=== PATIENT | female | born 1935 | race Caucasian/White ===

== ENCOUNTER 2018-04-23 21:48 | Emergency (ER) | payer MEDICARE, SELFPAY ==
[2018-04-23 22:04] VITALS: BP 162/83; PULSE 95; RESP 15; TEMP 36.4; O2SAT 97; BMI 36.6
--- NOTE | 2018-04-23 22:19 | DI.RAD.S_ITS ---
PROCEDURE: XR CHEST 1V INDICATIONS: chest pain TECHNIQUE: One view of the chest was acquired. COMPARISON: [facility], CT, CT ANGIO CHEST ABDOMEN PELVIS, 04/23/2018, 23:19. [facility], CR, CHEST 1 VIEW, 08/02/2016, 4:40. FINDINGS: Surgical changes and devices: Multiple monitoring leads project of the chest. Lungs and pleura: No pleural effusions or pneumothorax. There are mild bibasilar linear opacities most consistent with atelectasis. Mediastinum: Calcification of the aortic arch noted. Mediastinal contours appear normal. Heart size is normal. Large rounded opacity projecting posterior to the cardiac silhouette and over the medial right lung base consistent with a large hernia. Bones and chest wall: Degenerative changes of the bilateral acromioclavicular joints noted. Multilevel degenerative changes of the spine. IMPRESSION: #1. Mild bibasilar atelectasis. #2. Large hiatal hernia. Dictated by: Cam Hogan M.D. on 04/24/2018 at 8:21 Approved by: Cam Hogan M.D. on 04/24/2018 at 8:26
[2018-04-23 22:25] LABS: Prothrombin Time 10.5 SECONDS (10.1-12.7)
[2018-04-23] MEDS: ONDANSETRON 4 MG/2 ML INJ IV (22:26)
[2018-04-23 22:28] LABS: PTT Partial Thromboplastin Tim 22 SECONDS (26.4-36.2)
[2018-04-23 22:30] LABS: Alanine Aminotransferase 19 IU/L (9-52); Albumin 4.6 g/dL (3.5-5.0); Albumin Globulin Ratio 1.2 (1.0-2.8); Alkaline Phosphatase 86 U/L (38-126); Aspartate Aminotransferase 30 IU/L (14-36); BUN Creatinine Ratio 17.8 (6-22); Bilirubin Total 0.4 mg/dL (0.2-1.3); Blood Urea Nitrogen 16 mg/dL (7-17); Calcium 10.1 mg/dL (8.4-10.2); Carbon Dioxide 32 mmol/L (22-32); Chloride 98 mmol/L (98-107); Creatine Kinase 67 U/L (30-135); Estimated Glomerular Filt Rate 59.8 mL/min (>60); Globulin 3.9 g/dL (1.7-4.1); Glucose 179 mg/dL (80-110); HEMOLYSIS 25 (0-50); Lipase 102 U/L (23-300); Potassium 4.3 mmol/L (3.4-5.1); Sodium 145 mmol/L (137-145); Total Protein 8.5 g/dL (6.3-8.2)
[2018-04-23 22:37] LABS: Add Manual Diff / Slide Review NO; Basophils Percent Auto 0.7 % (0-2); Eosinophils Percent Auto 2.9 % (2-4); Hematocrit 42.4 % (36-46); Hemoglobin 14.4 g/dL (12.0-16.0); Lymphocytes Percent Auto 18.4 % (25-40); Mean Corpuscular HGB Conc 33.9 % (30-36); Mean Corpuscular Hemoglobin 30.9 PG (26-34); Mean Corpuscular Volume 91.2 fL (80-100); Monocytes Percent Auto 7.6 % (3-14); Neutrophils Absolute Auto 7800 /uL (3000-5900); Neutrophils Percent Auto 70.4 % (50-75); Platelet Count 296 X10^3/uL (150-400); Red Blood Cell Count 4.65 X10^6/uL (4.0-5.2); Red Cell Distribution Width 15.4 % (11.6-14.8); White Blood Cell Count 11.1 X10^3/uL (4.5-11.0)
[2018-04-23 22:42] LABS: Troponin I < 0.012 ng/mL (0.01-0.034)
--- NOTE | 2018-04-23 23:12 | DI.CT.S_ITS ---
PROCEDURE: CT ANGIO CHEST ABDOMEN PELVIS INDICATIONS: severe chest/abdomen pain, hypoxic TECHNIQUE: Precontrast 5 mm thick sections acquired from the lung apices to the iliac crests. After the administration of intravenous contrast, 2.5 mm thick sections again acquired from the lung apices to the iliac crests. Maximum intensity projection (MIP) oblique sagittal and coronal reformats were then acquired. For radiation dose reduction, the following was used: automated exposure control. COMPARISON: [facility], CT, CHEST/ABD/PEL WITH CONTRAST, 08/02/2016, 4:46. [facility], CT, ABDOMEN/PELVIS WITH CONTRAST, 03/13/2017, 2:36. FINDINGS: Image quality: Excellent. AORTA: Intramural hematoma: Absent Maximum hematoma thickness: Not applicable.. Focal contrast enhancement: Intramural blood pool (< 2 mm neck or imperceptible communication with aortic lumen): Absent. Ulcer-like projection (broad communication with aortic lumen > 3 mm): Absent. Dissection: Absent [place] classification: Not applicable Maximum aortic diameter: 4.0 cm. [If [place] A dissection, > 5.0 cm has a poorer prognosis. If Sammy B dissection, > 4.0 cm has a poorer prognosis.] Periaortic hematoma: Absent. CHEST: Lungs and pleura: No acute airspace opacities. No pleural effusions or pneumothorax. Central and peripheral airways are patent and normal in caliber. Mediastinum: Heart size is normal.Atherosclerotic calcifications are noted in the aorta, great vessels and the coronary vasculature. No pericardial effusion. No mediastinal or hilar adenopathy by size criteria. Central pulmonary arteries are normal in size. No large central pulmonary emboli. Esophagus is normal in caliber. Large hiatal hernia is noted which contains the majority of the stomach. Bones and chest wall: No axillary adenopathy by size criteria. Thyroid gland is within normal limits. No suspicious bony lesions. No vertebral body compression fractures. ABDOMEN: Vasculature: Celiac trunk and mesenteric arteries are patent. Renal arteries are also patent. Solid organs: Liver is normal in size. There is a 3.7 hypoattenuating lesion in the central liver. Gallbladder is contracted, but within normal limits. Biliary system is non dilated. Pancreas enhances normally. Spleen is normal in size and enhancement. No adrenal nodules. Both kidneys are normal in size and enhancement, without hydronephrosis. Right renal cyst is stable. Peritoneum and bowel: No free fluid or air. Bowel loops are normal in caliber and wall thickness.Scattered colonic diverticuli without evidence of diverticulitis. Nodes and vessels: No retroperitoneal or mesenteric adenopathy by size criteria. Inferior vena cava is normal in morphology. Scattered atherosclerotic calcifications involving the abdominal and pelvic vasculature. Atherosclerotic ossifications cause 50% stenosis of the origin of the superior mesenteric artery and the renal arteries. Miscellaneous: A small right periumbilical ventral hernia which contains unremarkable appearing omental fat. PELVIS: Genitourinary: Bladder wall thickness is normal. Uterus is absent. Miscellaneous: No inguinal hernias or adenopathy. No ventral hernias. Bones: No suspicious bony lesions. No vertebral body compression fractures.Spine degenerative disc disease and facet arthropathy. Fixation hardware noted lower lumbar spine. Status post right arthroplasty. IMPRESSION: 1. No evidence of aortic dissection or aortic aneurysm. 2. Atherosclerosis including the coronary vasculature. Atherosclerotic calcifications. 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 3. 3.7 cm hypoattenuating lesion in the central liver which may represent focal fatty infiltration versus less likely neoplastic process. Recommend abdominal ultrasound in one month. 4. Large hiatal hernia. 5. Colonic diverticulosis without evidence of diverticulitis. 6. Postsurgical changes. 7. Findings and recommendations discussed with Dr. Cortez on 04/24/2018 at 0920 hours. Dictated by: Jessy Ramirez MD, PhD on 04/24/2018 at 8:41 Approved by: Jessy Ramirez MD, PhD on 04/24/2018 at 9:22
[2018-04-24 00:30] VITALS: BP 114/63; PULSE 92; O2SAT 95
--- NOTE | 2018-04-24 03:24 | ED_ITS ---
HPI - Chest Pain General Chief Complaint: Chest Pain Stated Complaint: NEEDS TO VOMIT BUT CAN'T Time Seen by Provider: 04/23/18 22:04 Source: patient Mode of arrival: ambulatory Limitations: no limitations History of Present Illness HPI narrative: 82-year-old female with a history of a large sliding hiatal hernia presents to the emergency department with a chief complaint of severe sudden onset intense upper abdominal pain with radiation into her chest and back and near syncope after eating earlier this evening. She had severe nausea and attempted to vomit was unable and states that she has had a similar scenario in the past at which point she was transferred, wall heavily medicated to [facility] in [place] and is unsure what happened at that point time. She denies any recent travel, history of blood clots or recent surgeries. She states that she thinks [facility] fix the problem but she does not have any surgical scars to suggested. Her symptoms were still present on arrival but rapidly improved MD complaint: chest pain Onset (ago): hour(s) Duration: improved Onset: after eating Pain location: substernal Severity: severe Severity scale (1-10): 5 Quality: tightness and aching Pain radiation: back and abdomen Relieving factors: nothing Exacerbating factors: nothing Associated symptoms: nausea and vomiting Treatments prior to arrival chest pain: none Related Data On Oral Contraceptives: No Home Medications Medication Instructions Recorded Confirmed calcium carbonate 1 tab PO Q DAY #0 03/13/17 vitamin B complex [B 1 tab PO QDAY #0 03/13/17 Complex-Vitamin B12] cholecalciferol (vitamin D3) 1,000 unit PO QDAY #0 03/18/17 [Vitamin D3] magnesium oxide 250 mg PO QDAY #0 03/18/17 Previous Rx's Medication Instructions Recorded Disabled Parking Permit felicia #1 04/15/17 metformin [Glucophage] 750 mg PO QDAY #135 tab 06/05/17 pantoprazole 40 mg PO 0600,2100 #60 tab 06/18/17 sucralfate 1 gm PO QIDACHS #120 tab 06/18/17 simvastatin 40 mg tablet 40 mg PO HS #90 tab 01/23/18 blood sugar diagnostic strips #50 each 02/12/18 paroxetine 30 mg tablet 45 mg PO QDAY #135 tab 02/12/18 Allergies Allergy/AdvReac Type Severity Reaction Status Date / Time codeine [CODEINE] Allergy Unknown Unverified 11/19/17 12:13 shellfish derived Allergy Unknown Unverified 11/19/17 12:13 [SHELLFISH DERIVED] EXHAUST FUMES AdvReac Intermediate EYES SWELL Uncoded 11/19/17 12:13 SHUT, SWELLING, NAUSEA. Review of Systems Review of Systems All systems reviewed & are unremarkable except as noted in HPI and below Constitutional Denies chills, Denies fever(s), Denies lethargy and Denies weakness Eyes Denies change in vision, Denies eye discharge, Denies irritation and Denies loss of vision ENT Ears, Nose, Mouth, and Throat: Denies change in voice, Denies neck pain and Denies sore throat Cardiovascular Reports chest pain, Denies irregular heart rhythm, Denies lightheadedness, Denies palpitations, Denies dyspnea, Denies dyspnea on exertion and Denies orthopnea Respiratory Denies cough, Denies dyspnea, Denies dyspnea on exertion and Denies wheezing Gastrointestinal Gastrointestinal: Reports abdominal pain, Denies change in bowel habits, Denies diarrhea, Denies nausea and Denies vomiting Genitourinary Denies hematuria, Denies flank pain, Denies urinary incontinence and Denies urinary urgency Musculoskeletal Reports back pain and Denies neck pain Integumentary/Breasts Denies pruritus, Denies erythema, Denies rash and Denies wounds Neurologic Denies confusion, Denies loss of vision and Denies weakness Psychiatric Denies anxiety, Denies confusion, Denies depression, Denies homicidal ideation and Denies suicidal ideation Endocrine Denies palpitations Hematologic/Lymphatic Denies easy bruising Allergic/Immunologic Denies wheezing Exam Initial Vital Signs Initial Vital Signs: Vital Signs Temperature 97.6 F 04/23/18 22:04 Pulse Rate 95 H 04/23/18 22:04 Respiratory Rate 15 04/23/18 22:04 Blood Pressure 162/83 H 04/23/18 22:04 Pulse Oximetry 97 04/23/18 22:04 Const General: cooperative and well developed Nutritional Appearance: well nourished Orientation: alert, awake, oriented x3 and not confused [facility] Head: normocephalic and atraumatic Ears: external ears normal and TM's normal bilaterally Nose: external nose normal and No nasal discharge Face and sinus: sinuses nontender, face symmetric, no sinus tenderness and No dry mucous membranes Mouth: oral mucosae normal and moist mucous membranes Teeth and gingiva: dentition normal Throat: tonsils normal and uvula midline Eyes General: appearance normal, both eyes and all related structures Eyelids: eyelids normal Conjunctivae: conjunctivae normal Sclera: sclerae normal Pupils: PERRL EOM: EOM intact bilaterally Neck Neck: normal visual inspection, trachea midline, No lymphadenopathy, No midline deformity and No JVD Lymphatic: No lymphedema Chest Chest: normal inspection of the chest Resp Effort & Inspection: normal respiratory effort, able to speak in complete sentences, no respiratory distress and no use of accessory muscles Auscultation: clear to auscultation bilaterally, no rales, no rhonchi and no wheezes Cardio Rate: regular rate Rhythm: regular rhythm Heart Sounds: no click, no gallops, no murmurs and no rubs Pulses: normal peripheral pulses GI Inspection: non-distended Palpation: soft, no hepatosplenomegaly, No guarding, No pulsatile mass and No tender Auscultation: normal bowel sounds Back/Spine/Pelvis Back: No CVA tenderness Cervical Spine: cervical ROM normal and No pain with cervical ROM Thoracic/Lumbar Spine: thoracic and lumbar spine normal to inspection Skin General: no rashes or lesions noted, No jaundice and No petechiae Neuro General: alert, oriented x3, gait normal and no focal motor deficits Speech: speech normal Extrem General: full ROM, no clubbing, cyanosis or edema, no pedal edema and no calf tenderness Psych Appearance: well kempt Mental Status: mental status grossly normal Attitude: cooperative Thought Content: normal and suicidality Judgment: judgment good Course Orders Ordered: ED Orders 04/23/18 22:05 Complete Blood Count AUTO DIFF Stat Comprehensive Metabolic Panel Stat Lipase Stat Partial Thromboplastin Time Stat Prothrombin Time INR Stat Troponin & CK Cardiac Panel Stat 04/23/18 22:19 XR chest 1V Stat EKG-12 Lead Stat 04/23/18 23:12 CT angio chest abdomen pelvis Stat Discontinued Medications Ondansetron HCl (Zofran) 4 mg IV NOW ONE Stop: 04/23/18 22:20 Last Admin: 04/23/18 22:26 Dose: 4 mg Reevaluation(s) Reevaluation #1: now asymptomatic, feels much much better and is requesting DC, but happy to allow us to make some calls to [facility] Consultations Consultation #1: Dr. Sim (thoracic) has reviewed case and images as well as visit notes from 08/02/16 and suggests that her symptoms are likely unrelated to hernia findings Vital Signs - 8 hr 04/23/18 22:04 04/24/18 00:30 Temperature 97.6 F Pulse Rate 95 H 92 H Respiratory Rate 15 Blood Pressure 162/83 H Blood Pressure [Left Arm] 114/63 Pulse Oximetry 97 95 MDM - Chest Pain Differential Diagnosis Likely stable angina, unstable angina pectoris, atypical chest pain, st elevation myocardial infarction, costochondritis, chest pain and biliary colic Medical Records Data Attestation: I reviewed the patient's medical records. Lab Data Attestation: I reviewed the patient's lab results. Result diagrams: 04/23/18 22:05 04/23/18 22:05 Lab Results 04/23/18 04/23/18 04/23/18 Range/Units 22:05 22:05 22:05 WBC 11.1 H (4.5-11.0) X10^3/uL RBC 4.65 (4.0-5.2) X10^6/uL Hgb 14.4 (12.0-16.0) g/dL Hct 42.4 (36-46) % MCV 91.2 (80-100) fL MCH 30.9 (26-34) PG MCHC 33.9 (30-36) % RDW 15.4 H (11.6-14.8) % Plt Count 296 (150-400) X10^3/uL Neut % (Auto) 70.4 (50-75) % Lymph % (Auto) 18.4 L (25-40) % [place] % (Auto) 7.6 (3-14) % Eos % (Auto) 2.9 (2-4) % Baso % (Auto) 0.7 (0-2) % Neut # (Auto) 7800 H (8647-4242) /uL PT 10.5 (10.1-12.7) SECONDS INR 1.0 (0.9-1.3) APTT 22 L (26.4-36.2) SECONDS Sodium 145 (137-145) mmol/L Potassium 4.3 (3.4-5.1) mmol/L Chloride 98 (98-107) mmol/L Carbon Dioxide 32 (22-32) mmol/L BUN 16 (7-17) mg/dL Creatinine 0.90 (0.52-1.04) mg/dL Estimated GFR 59.8 L (>60) mL/min BUN/Creatinine Ratio 17.8 (6-22) Glucose 179 H (80-110) mg/dL Calcium 10.1 (8.4-10.2) mg/dL Total Bilirubin 0.4 (0.2-1.3) mg/dL AST 30 (14-36) IU/L ALT 19 (9-52) IU/L Alkaline Phosphatase 86 (38-126) U/L Total Creatine Kinase 67 (30-135) U/L Troponin I < 0.012 (0.01-0.034) ng/mL Total Protein 8.5 H (6.3-8.2) g/dL Albumin 4.6 (3.5-5.0) g/dL Globulin 3.9 (1.7-4.1) g/dL Albumin/Globulin Ratio 1.2 (1.0-2.8) Lipase 102 (23-300) U/L ABG Data Attestation: I personally reviewed and interpreted this ABG as follows: Imaging Data CT scan - chest: Radiologist's impression: No abdominal aortic aneurysm or dissection. Calcification causing approximately 50% narrowing origin of all mesenteric arteries which are otherwise unremarkable. 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 Stable large hiatal hernia majority of stomach and chest Discharge Plan Departure Patient Disposition: Home Clinical Impression: Hiatal hernia Instructions: DI for Hiatal Hernia Activity Restrictions/Additional Instructions: *You have been diagnosed with [ chronic sliding hiatal hernia ] *What to do: * continue to take medications as directed *Follow up with your primary care provider in 2-3 days, call for an appointment. Let them know you were seen in the Emergency Department and that we ask that you be seen in follow up Dr. Grady ([facility]) [phone] would be happy to see you as an outpatient for evaluation of your hernia. You have some narrowing of the arteries in your abdomen that likely did not contribute to today's symptoms but is certainly worthy of further evaluation. Please contact the [facility] at [phone] *Return to ER if you should have any new, worsening or concerning symptoms , such as [ ] Prescriptions: No Action calcium carbonate 200 MG tablet,chewable 1 tab PO Q DAY Qty: 0 RF: 0 vitamin B complex [B Complex-Vitamin B12] 1 EACH tablet 1 tab PO QDAY Qty: 0 RF: 0 magnesium oxide 250 MG tablet 250 mg PO QDAY Qty: 0 RF: 0 cholecalciferol (vitamin D3) [Vitamin D3] 1,000 UNIT tablet 1,000 unit PO QDAY Qty: 0 RF: 0 Disabled Parking Permit Qty: 1 RF: 0 metformin [Glucophage] 500 MG tablet 750 mg PO QDAY Qty: 135 RF: 1 sucralfate 1 GM tablet 1 gm PO QIDACHS Qty: 120 RF: 2 pantoprazole 40 MG tablet,delayed release (DR/EC) 40 mg PO 0600,2100 Qty: 60 RF: 2 simvastatin 40 mg tablet 40 mg PO HS Qty: 90 RF: 1 paroxetine HCl 30 mg tablet 45 mg PO QDAY Qty: 135 RF: 1 blood sugar diagnostic [Blood Glucose Test] strip .ROUTE .MEDSUPPLY Qty: 50 RF: 12 Referrals: Alka Greenfield MD [Primary Care Provider] -
[2018-04-24 03:30] VITALS: BP 128/59; PULSE 79; RESP 22
== END 2018-04-24 04:26 | disposition home or self-care (01) ==
PROVIDERS: Emergency Provider Emergency Medicine; Family Provider Family Medicine; PCP Family Medicine
DX: K44.9 Diaphragmatic hernia without obstruction or gangrene (principal)
CPT/HCPCS: 36591; 71045; 71275; 74174; 80053; 82550; 82553; 83690; 84484; 85025; 85610; 85730; 93005; 96374; 99283; 99285; J2405; Q9967

== ENCOUNTER → 2018-04-28 16:29 | Outpatient (CLI) | payer MEDICARE, SELFPAY ==
[2018-04-28 18:13] LABS: BUN Creatinine Ratio 17.8 (6-22); Blood Urea Nitrogen 16 mg/dL (7-17); Calcium 9.9 mg/dL (8.4-10.2); Carbon Dioxide 32 mmol/L (22-32); Chloride 98 mmol/L (98-107); Cholesterol 192 mg/dL (140-199); Estimated Glomerular Filt Rate 59.8 mL/min (>60); Glucose 125 mg/dL (80-110); HDL Cholesterol 68 mg/dL (40-60); HEMOLYSIS < 15 (0-50); LDL Cholesterol Calculated 97 mg/dL (<100); Sodium 142 mmol/L (137-145); Triglycerides 133 mg/dL (35-150)
[2018-04-28 18:14] LABS: Potassium 5.4 mmol/L (3.4-5.1)
[2018-04-28 18:38] LABS: Creatinine Urine Random 99.2 mg/dL
[2018-04-28 18:41] LABS: TSH w/ Reflex to FT4 4.25 uIU/mL (0.47-4.68)
[2018-04-28 18:42] LABS: Microalbumi Creatinin Ratio Ur 25.2 ug/mg CR (<30); Microalbumin Urine Random 2.5 mg/dL (0-1.6)
== END ==
PROVIDERS: Family Provider Family Medicine; PCP Family Medicine; Visit Provider Family Medicine
DX: D50.0 Iron deficiency anemia secondary to blood loss (chronic) (principal); E11.9 Type 2 diabetes mellitus without complications
CPT/HCPCS: 36415; 80048; 80061; 82043; 82570; 83036; 84443

== ENCOUNTER 2019-04-03 03:58 | Emergency (ER) | payer MEDICARE, SELFPAY ==
[2019-04-03] VITALS (8 sets, daily range): BP systolic 98–151; BP diastolic 59–102; PULSE 64–77; RESP 11–20; TEMP 37.2; O2SAT 91–96; BMI 36.6
--- NOTE | 2019-04-03 03:59 | DI.RAD.S_ITS ---
PROCEDURE: XR CHEST 1V INDICATIONS: Chest pain TECHNIQUE: One view of the chest was acquired. COMPARISON: None. FINDINGS: Surgical changes and devices: None. Lungs and pleura: Aeration of the lungs is similar to the prior study with mild eventration of the right diaphragm. There is slight increased attenuation at the left lung base that partially obscures the left diaphragm. The pulmonary vascular markings are within normal limits. There may be calcified granulomas within the right lung. No pneumothorax or large effusion is appreciated. Mediastinum: Mediastinal contours appear normal. Heart size is enlarged. Bones and chest wall: No suspicious bony lesions. Overlying soft tissues appear unremarkable. IMPRESSION: 1. Cardiomegaly. 2. Probable scarring versus atelectasis at the left lung base. Note: The preliminary ED findings and the final radiology report are concordant. Dictated by: Bigg Jackson M.D. on 04/03/2019 at 6:43 Approved by: Bigg Jackson M.D. on 04/03/2019 at 6:44
--- NOTE | 2019-04-03 04:00 | ED.CHESTPAIN ---
HPI - Chest Pain General Chief Complaint: Chest Pain Stated Complaint: thinks she is having a heart attack Time Seen by Provider: 04/03/19 03:58 Source: patient Mode of arrival: ambulatory Limitations: no limitations History of Present Illness HPI narrative: 83-year-old female who was a DNR/DNI here for evaluation of left-sided chest discomfort. She states that approximately 1-2 hours prior to arrival in the emergency department she woke up. She then noticed that she was having a sharp pain under her left breast. Did not think it was worse with movement or breathing or palpation. She is not short of breath. She feels that overall she is improving in her symptoms then when the symptoms 1st started. She was concerned that she may be having a heart attack. Related Data Home Medications Medication Instructions Recorded Confirmed calcium carbonate 1 tab PO Q DAY #0 03/13/17 04/28/18 vitamin B complex [B 1 tab PO QDAY #0 03/13/17 04/28/18 Complex-Vitamin B12] cholecalciferol (vitamin D3) 1,000 unit PO QDAY #0 03/18/17 04/28/18 [Vitamin D3] magnesium oxide 250 mg PO QDAY #0 03/18/17 04/28/18 Previous Rx's Medication Instructions Recorded Disabled Parking Permit felicia #1 04/15/17 blood sugar diagnostic strips #50 each 02/12/18 paroxetine 30 mg tablet 45 mg PO QDAY #135 tab 08/28/18 pantoprazole 40 mg tablet,delayed 40 mg PO 0600,2100 #180 tab 11/23/18 release metformin 500 mg tablet 750 mg PO QDAY #135 tab 01/05/19 simvastatin 40 mg tablet 40 mg PO HS #90 tab 02/24/19 Allergies Allergy/AdvReac Type Severity Reaction Status Date / Time codeine [CODEINE] Allergy Unknown Unverified 04/03/19 05:39 shellfish derived Allergy Unknown Unverified 04/03/19 05:39 [SHELLFISH DERIVED] EXHAUST FUMES AdvReac Intermediate EYES SWELL Uncoded 04/03/19 05:39 SHUT, SWELLING, NAUSEA. Review of Systems Constitutional Denies fatigue Cardiovascular Reports chest pain and Denies dyspnea Respiratory Denies dyspnea Gastrointestinal Gastrointestinal: Denies abdominal pain, Denies nausea and Denies vomiting Musculoskeletal Denies myalgias and Denies arthralgias Integumentary/Breasts Denies rash Neurologic Denies behavioral changes Psychiatric Denies behavioral changes Endocrine Denies fatigue Hematologic/Lymphatic Denies easy bleeding and Denies easy bruising [facility] Medical History Liver lesion (Acute) Chronic lower back pain (Acute) Hiatal hernia (Chronic) Blood loss anemia (Resolved) 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, 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) Social History Smoking Status: Former smoker Exam Initial Vital Signs Initial Vital Signs: Vital Signs Temperature 98.9 F 04/03/19 04:05 Pulse Rate 77 04/03/19 04:05 Respiratory Rate 11 L 04/03/19 04:05 Blood Pressure 136/102 H 04/03/19 04:05 Pulse Oximetry 95 04/03/19 04:05 Const General: cooperative, well developed and well groomed Orientation: alert, awake and oriented x3 Resp Effort & Inspection: normal respiratory effort Auscultation: clear to auscultation bilaterally Cardio Rate: regular rate Rhythm: regular rhythm Skin Lesions: no lesions Rashes: no rashes Neuro General: alert and awake Cognition: normal cognition Speech: speech normal Extrem General: normal to inspection and capillary refill normal Psych Appearance: grossly normal and well kempt Course Orders Ordered: ED Orders 04/03/19 03:59 XR chest 1V Stat EKG-12 Lead Stat 04/03/19 04:15 B Type Natriuretic Peptide Stat Complete Blood Count AUTO DIFF Stat Comprehensive Metabolic Panel Stat Lipase Stat Partial Thromboplastin Time Stat Prothrombin Time INR Stat Troponin I Stat 04/03/19 06:17 Troponin I Stat Vital Signs - 8 hr 04/03/19 04:05 04/03/19 04:26 04/03/19 04:34 Temperature 98.9 F Pulse Rate 77 68 69 Respiratory Rate 11 L 18 Blood Pressure 136/102 H Blood Pressure [Right Arm] 134/95 H 108/64 Pulse Oximetry 95 96 96 04/03/19 05:02 04/03/19 05:34 04/03/19 06:00 Temperature Pulse Rate 67 64 66 Respiratory Rate 14 17 Blood Pressure Blood Pressure [Right Arm] 118/59 L 151/65 H 98/80 Pulse Oximetry 96 93 04/03/19 06:30 Temperature Pulse Rate 66 Respiratory Rate 20 Blood Pressure Blood Pressure [Right Arm] Pulse Oximetry 91 MDM - Chest Pain Lab Data Attestation: I reviewed the patient's lab results. Result diagrams: 04/03/19 04:15 04/03/19 04:15 Lab Results 04/03/19 04/03/19 04/03/19 Range/Units 04:15 04:15 04:15 WBC 8.7 (4.5-11.0) X10^3/uL RBC 4.25 (4.0-5.2) X10^6/uL Hgb 13.1 (12.0-16.0) g/dL Hct 39.1 (36-46) % MCV 91.8 (80-100) fL MCH 30.7 (26-34) PG MCHC 33.5 (30-36) % RDW 15.6 H (11.6-14.8) % Plt Count 281 (150-400) X10^3/uL Neut % (Auto) 52.8 (50-75) % Lymph % (Auto) 29.4 (25-40) % [place] % (Auto) 11.8 (3-14) % Eos % (Auto) 4.9 H (2-4) % Baso % (Auto) 1.1 (0-2) % Neut # (Auto) 4600 (0047-9825) /uL Lymph # (Auto) 2600 (1210-7199) /uL [place] # (Auto) 1000 H (0-900) /uL Eos # (Auto) 400 (0-450) /uL Baso # (Auto) 100 (0-100) /uL PT 10.8 (10.1-12.7) SECONDS INR 0.9 (0.9-1.3) APTT 33 D (26.4-36.2) SECONDS Sodium 135 L (137-145) mmol/L Potassium 4.4 (3.4-5.1) mmol/L Chloride 94 L (98-107) mmol/L Carbon Dioxide 31 (22-32) mmol/L BUN 16 (7-17) mg/dL Creatinine 0.90 (0.52-1.04) mg/dL Estimated GFR 59.7 L (>60) mL/min BUN/Creatinine Ratio 17.8 (6-22) Glucose 155 H (80-110) mg/dL Calcium 9.6 (8.4-10.2) mg/dL Total Bilirubin 0.4 (0.2-1.3) mg/dL AST 25 (14-36) IU/L ALT 12 (9-52) IU/L Alkaline Phosphatase 73 (38-126) U/L Troponin I < 0.012 (0.01-0.034) ng/mL B-Natriuretic Peptide 173 H (<100) Total Protein 8.2 (6.3-8.2) g/dL Albumin 4.3 (3.5-5.0) g/dL Globulin 3.9 (1.7-4.1) g/dL Albumin/Globulin Ratio 1.1 (1.0-2.8) Lipase 109 (23-300) U/L // Range/Units 06:17 WBC (4.5-11.0) X10^3/uL RBC (4.0-5.2) X10^6/uL Hgb (12.0-16.0) g/dL Hct (36-46) % MCV (80-100) fL MCH (26-34) PG MCHC (30-36) % RDW (11.6-14.8) % Plt Count (150-400) X10^3/uL Neut % (Auto) (50-75) % Lymph % (Auto) (25-40) % [place] % (Auto) (3-14) % Eos % (Auto) (2-4) % Baso % (Auto) (0-2) % Neut # (Auto) (4696-3457) /uL Lymph # (Auto) (4598-9528) /uL [place] # (Auto) (0-900) /uL Eos # (Auto) (0-450) /uL Baso # (Auto) (0-100) /uL PT (10.1-12.7) SECONDS INR (0.9-1.3) APTT (26.4-36.2) SECONDS Sodium (137-145) mmol/L Potassium (3.4-5.1) mmol/L Chloride (98-107) mmol/L Carbon Dioxide (22-32) mmol/L BUN (7-17) mg/dL Creatinine (0.52-1.04) mg/dL Estimated GFR (>60) mL/min BUN/Creatinine Ratio (6-22) Glucose (80-110) mg/dL Calcium (8.4-10.2) mg/dL Total Bilirubin (0.2-1.3) mg/dL AST (14-36) IU/L ALT (9-52) IU/L Alkaline Phosphatase (38-126) U/L Troponin I < 0.012 (0.01-0.034) ng/mL B-Natriuretic Peptide (<100) Total Protein (6.3-8.2) g/dL Albumin (3.5-5.0) g/dL Globulin (1.7-4.1) g/dL Albumin/Globulin Ratio (1.0-2.8) Lipase (23-300) U/L Imaging Data Chest x-ray: Attestation: I personally reviewed and interpreted this imaging study as follows: My impression: No acute pathology ECG Data Attestation: I personally reviewed and interpreted this ECG as follows: Prior ECG tracings: not available for review Interpretation: Sinus rhythm Ventricular rate is 68 Normal axis Normal QRS Normal QTC No ST T wave changes MDM Narrative Medical decision making narrative: Nontoxic appearing EKG is unremarkable. Chest x-ray shows no acute pathology, troponin negative x2, patient is DNR/DNI. Will hold on further workup for now. Unsure the exact etiology of the patient's symptoms however hold on further workup. Discussed this to the patient. She is going to contact her primary doctor for follow-up. She is given return precautions and follow-up instructions. She expressed understanding and agreement with plan. Discharge Plan Departure Patient Disposition: Home Clinical Impression: Atypical chest pain Instructions: DI for Atypical Chest Pain Activity Restrictions/Additional Instructions: Continue all of your medications as directed. Contact your primary provider for follow-up. Return to the emergency department for any new or worsening symptoms Prescriptions: No Action calcium carbonate 200 MG tablet,chewable 1 tab PO Q DAY Qty: 0 RF: 0 vitamin B complex [B Complex-Vitamin B12] 1 EACH tablet 1 tab PO QDAY Qty: 0 RF: 0 magnesium oxide 250 MG tablet 250 mg PO QDAY Qty: 0 RF: 0 cholecalciferol (vitamin D3) [Vitamin D3] 1,000 UNIT tablet 1,000 unit PO QDAY Qty: 0 RF: 0 Disabled Parking Permit Qty: 1 RF: 0 blood sugar diagnostic [Blood Glucose Test] strip .ROUTE .MEDSUPPLY Qty: 50 RF: 12 paroxetine HCl 30 mg tablet 45 mg PO QDAY Qty: 135 RF: 1 pantoprazole 40 mg tablet,delayed release (DR/EC) 40 mg PO 0600,2100 Qty: 180 RF: 1 metformin [Glucophage] 500 mg tablet 750 mg PO QDAY Qty: 135 RF: 1 simvastatin 40 mg tablet 40 mg PO HS Qty: 90 RF: 1 Referrals: Alka Greenfield MD [Primary Care Provider] -
[2019-04-03 04:23] LABS: Add Manual Diff / Slide Review NO; Basophils Absolute Auto 100 /uL (0-100); Basophils Percent Auto 1.1 % (0-2); Eosinophils Absolute Auto 400 /uL (0-450); Eosinophils Percent Auto 4.9 % (2-4); Hematocrit 39.1 % (36-46); Hemoglobin 13.1 g/dL (12.0-16.0); Lymphocytes Absolute Auto 2600 /uL (1100-4500); Lymphocytes Percent Auto 29.4 % (25-40); Mean Corpuscular HGB Conc 33.5 % (30-36); Mean Corpuscular Hemoglobin 30.7 PG (26-34); Mean Corpuscular Volume 91.8 fL (80-100); Monocytes Absolute Auto 1000 /uL (0-900); Monocytes Percent Auto 11.8 % (3-14); Neutrophils Absolute Auto 4600 /uL (1500-7000); Neutrophils Percent Auto 52.8 % (50-75); Platelet Count 281 X10^3/uL (150-400); Red Blood Cell Count 4.25 X10^6/uL (4.0-5.2); Red Cell Distribution Width 15.6 % (11.6-14.8); White Blood Cell Count 8.7 X10^3/uL (4.5-11.0)
--- NOTE | 2019-04-03 04:28 | PC.NURSE ---
Pt reports a stabbing pain in the left side of her chest that was 8/10 at it's worst. She called out in pain when center of her chest was palpated. She now states her pain in in the same location but 4/10 and it is definitely better than it was. Pt is now resting comfortable on stretcher, given warm blankets, and her daughter is at bedside.
[2019-04-03 04:35] LABS: INR 0.9 (0.9-1.3); Prothrombin Time 10.8 SECONDS (10.1-12.7)
[2019-04-03 04:36] LABS: Alanine Aminotransferase 12 IU/L (9-52); Albumin 4.3 g/dL (3.5-5.0); Albumin Globulin Ratio 1.1 (1.0-2.8); Alkaline Phosphatase 73 U/L (38-126); Aspartate Aminotransferase 25 IU/L (14-36); BUN Creatinine Ratio 17.8 (6-22); Bilirubin Total 0.4 mg/dL (0.2-1.3); Blood Urea Nitrogen 16 mg/dL (7-17); Calcium 9.6 mg/dL (8.4-10.2); Carbon Dioxide 31 mmol/L (22-32); Chloride 94 mmol/L (98-107); Estimated Glomerular Filt Rate 59.7 mL/min (>60); Globulin 3.9 g/dL (1.7-4.1); Glucose 155 mg/dL (80-110); HEMOLYSIS < 15 (0-50); Lipase 109 U/L (23-300); Potassium 4.4 mmol/L (3.4-5.1); Sodium 135 mmol/L (137-145); Total Protein 8.2 g/dL (6.3-8.2)
[2019-04-03 04:37] LABS: PTT Partial Thromboplastin Tim 33 SECONDS (26.4-36.2)
[2019-04-03 04:42] LABS: B Type Natriuretic Peptide 173 (<100)
[2019-04-03 04:47] LABS: Troponin I < 0.012 ng/mL (0.01-0.034)
--- NOTE | 2019-04-03 05:35 | PC.NURSE ---
Pt states it feels better. Pt resting on stretcher having quiet calm conversation with her daughter at the bedside. Denies needs at this time. Informed of wait time for second troponin draw.
--- NOTE | 2019-04-03 06:12 | PC.NURSE ---
second troponin drawn by lab
[2019-04-03 06:56] LABS: Troponin I < 0.012 ng/mL (0.01-0.034)
== END 2019-04-03 07:21 | disposition home or self-care (01) ==
PROVIDERS: Emergency Provider Emergency Medicine; PCP Family Medicine
DX: R07.89 Other chest pain (principal)
CPT/HCPCS: 36415; 36591; 71045; 80053; 83690; 83880; 84484; 85025; 85610; 85730; 93005; 99283; 99285

== ENCOUNTER → 2019-10-13 14:52 | Outpatient (CLI) | payer MEDICARE, SELFPAY ==
[2019-10-13 15:26] LABS: Add Manual Diff / Slide Review NO; Basophils Absolute Auto 100 /uL (0-100); Basophils Percent Auto 0.5 % (0-2); Eosinophils Absolute Auto 500 /uL (0-450); Eosinophils Percent Auto 4.2 % (2-4); Hematocrit 44.4 % (36-46); Hemoglobin 14.7 g/dL (12.0-16.0); Lymphocytes Absolute Auto 3400 /uL (1100-4500); Lymphocytes Percent Auto 26.8 % (25-40); Mean Corpuscular HGB Conc 33.1 % (30-36); Mean Corpuscular Hemoglobin 31.3 PG (26-34); Mean Corpuscular Volume 94.4 fL (80-100); Monocytes Absolute Auto 1300 /uL (0-900); Monocytes Percent Auto 10.4 % (3-14); Neutrophils Absolute Auto 7300 /uL (1500-7000); Neutrophils Percent Auto 58.1 % (50-75); Platelet Count 296 X10^3/uL (150-400); Red Blood Cell Count 4.71 X10^6/uL (4.0-5.2); Red Cell Distribution Width 14.8 % (11.6-14.8); White Blood Cell Count 12.6 X10^3/uL (4.5-11.0)
[2019-10-13 15:36] LABS: Hemoglobin A1C% w Est Avg Glu 7.6 % (4.0-6.0)
[2019-10-13 16:07] LABS: Alanine Aminotransferase 11 IU/L (<35); Alkaline Phosphatase 83 U/L (38-126); Aspartate Aminotransferase 26 IU/L (14-36); Bilirubin Total 0.6 mg/dL (0.2-1.3); Blood Urea Nitrogen 22 mg/dL (7-17); Calcium 10.9 mg/dL (8.4-10.2); Carbon Dioxide 28 mmol/L (22-32); Chloride 99 mmol/L (98-107); Estimated Glomerular Filt Rate 47.3 mL/min (>60); Glucose 151 mg/dL (80-110); Sodium 141 mmol/L (137-145); Total Protein 8.4 g/dL (6.3-8.2)
[2019-10-13 16:08] LABS: Albumin 4.5 g/dL (3.5-5.0); Albumin Globulin Ratio 1.2 (1.0-2.8); Globulin 3.9 g/dL (1.7-4.1); HEMOLYSIS 24 (0-50)
[2019-10-13 16:10] LABS: Potassium 5.7 mmol/L (3.4-5.1)
== END ==
PROVIDERS: PCP Family Medicine; Referring Provider Family Medicine; Visit Provider Family Medicine
DX: R53.83 Other fatigue (principal); E11.9 Type 2 diabetes mellitus without complications
CPT/HCPCS: 36415; 80053; 83036; 84443; 85025